=== PATIENT | male | born 1960 | race African-American/Black ===

== ENCOUNTER 2017-09-23 01:02 | Emergency (ER) | payer MEDICAID ==
[~2017-09-23] VITALS: Ht 182.9 cm; Wt 68.0 kg
[2017-09-23 01:10] VITALS: BP 133/68
[2017-09-23 02:10] LABS: Basophils # (auto) 0.1 uL; Monocytes # (auto) 1.3 uL; Nucleated Red Blood Cells % 0.1 %
[2017-09-23 02:12] LABS: Basophils % (auto) 0.4 % (0.0-2.0); Eosinophils # (auto) 0.1 uL; Eosinophils % (auto) 0.6 % (0.0-7.0); Hematocrit 51.8 % (41.0-53.0); Hemoglobin 16.7 g/dL (13.5-17.5); Lymphocytes # (auto) 1.8 uL; Lymphocytes % (auto) 15.9 % (10.0-50.0); Mean Corpuscular Hemoglobin 26.3 pg (28.0-32.0); Mean Corpuscular Hgb Conc. 32.3 g/dL (32.0-36.0); Mean Corpuscular Volume 81.6 fL (80.0-100.0); Monocytes % (auto) 11.1 % (0.0-12.0); Neutrophils # (auto) 8.1 uL; Platelet Count (auto) 249 10^3/uL (140-450); Red Cell Distribution Width 16.3 % (11.8-14.3); White Blood Cell 11.3 10^3/uL (4.4-10.8)
[2017-09-23 02:26] LABS: INR 1.15 (0.9-1.15); Partial Thromboplastin Time 30.1 sec (22.64-33.71); Prothrombin Time 12.6 sec (9.37-12.3)
[2017-09-23 02:27] LABS: Albumin 3.4 g/dL (3.4-5.0); BUN/Creatinine Ratio 18.8; Magnesium 2.1 mg/dL (1.6-2.6); Potassium 4.3 mmol/L (3.5-5.1)
[2017-09-23 02:32] LABS: Bilirubin, Total 1.1 mg/dL (0.2-1.0)
[2017-09-23 02:41] LABS: Temperature: 22.4 C (20.0-25.0)
== END 2017-09-23 02:40 | disposition left against medical advice (07) ==
LOC: EDBD 01:02 → ER 01:09
DX: R06.02 Shortness of breath (principal); R42 Dizziness and giddiness; R51 Headache; I10 Essential (primary) hypertension; Z53.29 Procedure and treatment not carried out because of patient's decision for other reasons
CPT/HCPCS: 36415; 71010; 72125; 80053; 83735; 83880; 84484; 85025; 85610; 85730; 93005; 94761

== ENCOUNTER 2017-10-02 10:13 | Emergency (ER) | payer MEDICAID ==
[~2017-10-02] VITALS: Ht 182.9 cm; Wt 68.0 kg
[~2017-10-02 10:13] MED LIST: ASPI81CH43 PO; FURO40TA4 PO; LISI10TA6 PO; METO-158 PO; PANT40T PO; SOTA80TA PO; SUCR1SUS10 PO; TAMS0.4C36 PO
[2017-10-02 10:40] LABS: Basophils # (auto) 0.1 uL; Eosinophils # (auto) 0.1 uL; Eosinophils % (auto) 0.5 % (0.0-7.0); Mean Corpuscular Hgb Conc. 32.5 g/dL (32.0-36.0); Nucleated Red Blood Cells % 0.6 %
[2017-10-02 10:42] LABS: Basophils % (auto) 0.9 % (0.0-2.0); Hematocrit 48.1 % (41.0-53.0); Hemoglobin 15.6 g/dL (13.5-17.5); Lymphocytes # (auto) 2.2 uL; Lymphocytes % (auto) 20.9 % (10.0-50.0); Mean Corpuscular Hemoglobin 26.3 pg (28.0-32.0); Mean Corpuscular Volume 81.1 fL (80.0-100.0); Mean Platelet Volume 7.7 fL (6.9-10.8); Monocytes # (auto) 1.6 uL; Monocytes % (auto) 15.1 % (0.0-12.0); Neutrophils # (auto) 6.5 uL; Neutrophils % (auto) 62.6 % (37.0-80.0); Platelet Count (auto) 266 10^3/uL (140-450); Red Cell Distribution Width 15.6 % (11.8-14.3); White Blood Cell 10.4 10^3/uL (4.4-10.8)
[2017-10-02 10:58] LABS: Albumin 2.8 g/dL (3.4-5.0); BUN/Creatinine Ratio 24.4; Calcium 8.5 mg/dL (8.5-10.1); Potassium 3.9 mmol/L (3.5-5.1)
[2017-10-02 11:00] LABS: Bilirubin, Total 0.5 mg/dL (0.2-1.0); Total Protein 6.3 g/dL (6.4-8.2)
[2017-10-02 11:22] LABS: INR 1.25 (0.9-1.15); Prothrombin Time 13.7 sec (9.37-12.3)
[2017-10-02 12:27] VITALS: BP 135/45
== END 2017-10-02 14:55 | disposition swing bed (61) ==
LOC: ER 10:13 → EDBD 10:13 → ER 14:55
DX: R07.89 Other chest pain (principal); R79.89 Other specified abnormal findings of blood chemistry; R74.8 Abnormal levels of other serum enzymes; I35.8 Other nonrheumatic aortic valve disorders; F17.210 Nicotine dependence, cigarettes, uncomplicated; I50.9 Heart failure, unspecified; I11.0 Hypertensive heart disease with heart failure; Z79.82 Long term (current) use of aspirin; Z88.0 Allergy status to penicillin
CPT/HCPCS: 36415; 71010; 80053; 83735; 84484; 85025; 85610; 85730; 93005; 99291

== ENCOUNTER 2017-10-11 03:47 | Emergency (ER) | payer MEDICAID ==
[~2017-10-11] VITALS: Ht 180.3 cm; Wt 90.7 kg
[~2017-10-11 03:47] MED LIST changes: -SOTA80TA PO; +SOTA80TA20 PO
[2017-10-11 05:57] LABS: Basophils # (auto) 0.1 uL; Basophils % (auto) 0.8 % (0.0-2.0); Eosinophils # (auto) 0.1 uL; Hemoglobin 14.9 g/dL (13.5-17.5); White Blood Cell 9.1 10^3/uL (4.4-10.8)
[2017-10-11 05:59] LABS: Eosinophils % (auto) 1.4 % (0.0-7.0); Hematocrit 46.5 % (41.0-53.0); Lymphocytes # (auto) 2.4 uL; Lymphocytes % (auto) 26.1 % (10.0-50.0); Mean Corpuscular Hemoglobin 26.2 pg (28.0-32.0); Mean Corpuscular Hgb Conc. 32.1 g/dL (32.0-36.0); Mean Corpuscular Volume 81.7 fL (80.0-100.0); Monocytes # (auto) 1.4 uL; Neutrophils # (auto) 5.2 uL; Neutrophils % (auto) 56.7 % (37.0-80.0); Nucleated Red Blood Cells % 0.4 %; Platelet Count (auto) 348 10^3/uL (140-450); Red Blood Cells 5.69 10^6/uL (4.5-5.90); Red Cell Distribution Width 16.2 % (11.8-14.3)
[2017-10-11 06:24] LABS: Potassium 3.5 mmol/L (3.5-5.1)
[2017-10-11 06:29] LABS: Albumin 3.1 g/dL (3.4-5.0); BUN/Creatinine Ratio 27.1; Calcium 8.7 mg/dL (8.5-10.1); Magnesium 2.5 mg/dL (1.6-2.6)
[2017-10-11 06:34] LABS: Bilirubin, Total 0.3 mg/dL (0.2-1.0); Total Protein 6.8 g/dL (6.4-8.2)
[2017-10-11 09:50] VITALS: BP 104/47
== END 2017-10-11 10:00 | disposition home or self-care (01) ==
LOC: ER 03:47 → EDBD 03:47 → ER 10:00
DX: R06.02 Shortness of breath (principal); E46 Unspecified protein-calorie malnutrition; I11.0 Hypertensive heart disease with heart failure; I50.9 Heart failure, unspecified; F17.210 Nicotine dependence, cigarettes, uncomplicated; I25.2 Old myocardial infarction; Z95.0 Presence of cardiac pacemaker
CPT/HCPCS: 36415; 71010; 80053; 83735; 84484; 85025; 93005

== ENCOUNTER 2017-10-28 19:54 | Inpatient (IN) | payer MEDICAID ==
[~2017-10-28] VITALS: Ht 188 cm; Wt 68.0 kg
[2017-10-28 21:03] LABS: INR 1.05 (0.9-1.15); Partial Thromboplastin Time 25.9 sec (22.64-33.71); Prothrombin Time 11.4 sec (9.37-12.3)
[2017-10-28 21:07] LABS: Basophils # (auto) 0.1 uL; Eosinophils # (auto) 0.2 uL; Lymphocytes % (auto) 26.2 % (10.0-50.0); Monocytes % (auto) 12.3 % (0.0-12.0); Platelet Count (auto) 246 10^3/uL (140-450)
[2017-10-28 21:12] LABS: BUN/Creatinine Ratio 17.9; Bilirubin, Total 0.4 mg/dL (0.2-1.0); Hemoglobin 13.3 g/dL (13.5-17.5); Lymphocytes # (auto) 2.1 uL; Magnesium 2.3 mg/dL (1.6-2.6); Mean Corpuscular Hemoglobin 26.4 pg (28.0-32.0); Mean Corpuscular Hgb Conc. 32.4 g/dL (32.0-36.0); Mean Corpuscular Volume 81.6 fL (80.0-100.0); Neutrophils # (auto) 4.6 uL; Neutrophils % (auto) 58.5 % (37.0-80.0); Nucleated Red Blood Cells % 0.3 %; Potassium 4.1 mmol/L (3.5-5.1); Red Blood Cells 5.02 10^6/uL (4.5-5.90); Red Cell Distribution Width 16.6 % (11.8-14.3); Total Protein 6.1 g/dL (6.4-8.2); White Blood Cell 7.8 10^3/uL (4.4-10.8)
[2017-10-29] MEDS ORDERED: ASPirin 81 mg TAB PO ONE (00:45)
[2017-10-29] MEDS ORDERED: HYDROcodone-ACET 10/325MG TAB PO ONE (01:30)
[2017-10-29 02:12] LABS: Urine WBC None Seen /hpf (0 - 3)
[2017-10-29] MEDS ORDERED: FUROSEMIDE 20 MG/2 ML VIAL IV ONE (02:30)
[2017-10-29 02:39] LABS: Urine Bacteria NONE SEEN /hpf (None Seen); Urine Blood Negative /uL (Negative); Urine Specific Gravity 1.021 (1.001-1.035)
[2017-10-29] MEDS ORDERED: LORazepam 0.5 MG TAB PO ONE (02:45)
[2017-10-29] MEDS ORDERED: SODIUM CHLORIDE 0.9% 1,000 ML IV SCH (03:14)
[2017-10-29] MEDS ORDERED: ENOXAPARIN SOD 100 MG/1 ML SYRINGE SC ONE (03:15)
[2017-10-29] MEDS ORDERED: NITROGLYCERIN 0.4 MG SL TAB SL PRN (03:15)
[2017-10-29] MEDS ORDERED: HYDROcodone-ACET 5/325MG TAB PO PRN (03:15)
[2017-10-29] MEDS ORDERED: MORPHINE SULFATE 10 MG/ML INJ 1ML SDV IV PRN ×2 (03:15)
[2017-10-29] MEDS ORDERED: ONDANSETRON HCL 4 MG/2 ML VIAL IV PRN (03:15)
[2017-10-29] MEDS ORDERED: TEMAZEPAM 15 MG CAP PO PRN (03:15)
[2017-10-29] MEDS ORDERED: ACETAMINOPHEN 325 MG TAB PO PRN (03:15)
[2017-10-29] MEDS ORDERED: FUROSEMIDE 40 MG TAB PO SCH (06:00)
[2017-10-29] MEDS ORDERED: LISINOPRIL 10 MG TAB PO SCH (10:00)
[2017-10-29] MEDS ORDERED: METOPROLOL TARTRATE 25 MG TAB PO SCH (10:00)
[2017-10-29] MEDS ORDERED: ASPirin 81 mg TAB PO SCH (10:00)
[2017-10-29] MEDS ORDERED: PANTOPRAZOLE 40 MG TAB PO SCH (10:00)
[2017-10-29] MEDS ORDERED: PANTOPRAZOLE 40 MG/10 ML VIAL IV SCH (10:00)
[2017-10-29 10:37] VITALS: BP 115/55
[2017-10-29] MEDS ORDERED: HYDR-4683 PO (10:50)
[2017-10-29] MEDS ORDERED: POTA10TA34 PO (10:50)
[2017-10-29] MEDS ORDERED: ENAL2.5T PO (10:50)
[2017-10-29] MEDS ORDERED: IBUP200C14 PO (10:50)
[2017-10-29 13:09] VITALS: BP 115/55
[2017-10-29] MEDS ORDERED: ENOXAPARIN SOD 40 MG/0.4 ML SYRINGE SC SCH (22:00)
== END 2017-10-29 18:04 | disposition short-term general hospital (02) | DRG 190 ==
LOC: EDBD 19:54 → ER 19:54 → TELE 19:55 → TELE-WESTW 10-29 10:21
PROVIDERS: ADMIT Nurse Practitioner; ATTEND Internal Medicine
DX: I21.4 Non-ST elevation (NSTEMI) myocardial infarction (principal); I11.0 Hypertensive heart disease with heart failure; I50.9 Heart failure, unspecified; N18.3 Chronic kidney disease, stage 3 (moderate); I35.1 Nonrheumatic aortic (valve) insufficiency; F17.210 Nicotine dependence, cigarettes, uncomplicated; N40.0 Benign prostatic hyperplasia without lower urinary tract symptoms; I77.819 Aortic ectasia, unspecified site; I25.10 Atherosclerotic heart disease of native coronary artery without angina pectoris; Z82.49 Family history of ischemic heart disease and other diseases of the circulatory system; Z86.73 Personal history of transient ischemic attack (TIA), and cerebral infarction without residual deficits; Z88.0 Allergy status to penicillin; Z79.899 Other long term (current) drug therapy; Z95.0 Presence of cardiac pacemaker
CPT/HCPCS: 36415; 71045; 80053; 81001; 83735; 83880; 84484; 85025; 85379; 85610; 85730; 93005; 96361; 96372; 96374; 96375; C9113

== ENCOUNTER 2018-01-17 04:40 | Emergency (ER) | payer MEDICAID ==
[~2018-01-17] VITALS: Ht 172.7 cm; Wt 72.6 kg
[~2018-01-17 04:40] MED LIST changes: +ENAL2.5T PO; +HYDR-4683 PO; +POTA10TA34 PO; -SOTA80TA20 PO
[2018-01-17 04:50] VITALS: BP 138/104
== END 2018-01-17 06:12 | disposition left against medical advice (07) ==
LOC: EDBD 04:40 → ER 04:45
DX: R10.9 Unspecified abdominal pain (principal); Z53.21 Procedure and treatment not carried out due to patient leaving prior to being seen by health care provider
CPT/HCPCS: 93005

== ENCOUNTER 2018-03-20 06:07 | Inpatient (IN) | payer MEDICAID ==
[~2018-03-20] VITALS: Ht 182.9 cm; Wt 71.4 kg
[2018-03-20] MEDS ORDERED: MORPHINE SULFATE 8mg/ml INJ SDV IV ONE (06:30)
[2018-03-20] MEDS ORDERED: ONDANSETRON HCL 4 MG/2 ML VIAL IV ONE (06:30)
[2018-03-20 06:52] LABS: Basophils # (auto) 0 uL; Mean Corpuscular Hemoglobin 22.8 pg (28.0-32.0); White Blood Cell 5.9 10^3/uL (4.4-10.8)
[2018-03-20 06:54] LABS: Eosinophils # (auto) 0.3 uL; Eosinophils % (auto) 5.7 % (0.0-7.0); Hematocrit 38.9 % (41.0-53.0); Hemoglobin 11.9 g/dL (13.5-17.5); Lymphocytes # (auto) 1.2 uL; Lymphocytes % (auto) 20.8 % (10.0-50.0); Mean Corpuscular Hgb Conc. 30.7 g/dL (32.0-36.0); Mean Corpuscular Volume 74.4 fL (80.0-100.0); Monocytes # (auto) 0.9 uL; Monocytes % (auto) 15.1 % (0.0-12.0); Neutrophils # (auto) 3.4 uL; Neutrophils % (auto) 58.4 % (37.0-80.0); Platelet Count (auto) 269 10^3/uL (140-450); Red Blood Cells 5.23 10^6/uL (4.5-5.90)
[2018-03-20] MEDS ORDERED: CARV3.1240 PO (06:59)
[2018-03-20] MEDS ORDERED: OME20T PO (06:59)
[2018-03-20 07:08] LABS: Red Cell Distribution Width 20.5 % (11.8-14.3)
[2018-03-20 07:14] LABS: INR 1.29 (0.9-1.15); Partial Thromboplastin Time 30.6 sec (23.78-33.04); Prothrombin Time 13.6 sec (9.27-12.13)
[2018-03-20 07:28] LABS: Albumin 3.2 g/dL (3.4-5.0); BUN/Creatinine Ratio 21.5; Bilirubin, Total 0.5 mg/dL (0.2-1.0); Calcium 8.1 mg/dL (8.5-10.1); Magnesium 2.2 mg/dL (1.6-2.6); Potassium 4.1 mmol/L (3.5-5.1); Total Protein 6.3 g/dL (6.4-8.2)
[2018-03-20] MEDS ORDERED: ACETAMINOPHEN 500 MG TAB PO PRN (08:00)
[2018-03-20] MEDS ORDERED: ONDANSETRON HCL 4 MG/2 ML VIAL IV PRN (08:00)
[2018-03-20] MEDS ORDERED: MORPHINE SULFATE 8mg/ml INJ SDV IV PRN (08:00)
[2018-03-20] MEDS ORDERED: NITROGLYCERIN 0.4 MG SL TAB SL PRN (08:00)
[2018-03-20] MEDS ORDERED: FUROSEMIDE 40 MG/4 ML VIAL IV ONE ×2 (08:15)
[2018-03-20] MEDS: FUROSEMIDE 40 MG/4 ML VIAL IV SCH ×2 (08:45→10:00)
[2018-03-20] MEDS: ASPirin-EC 81 mg tab PO SCH ×2 (08:49→10:04)
[2018-03-20 09:30] VITALS: BP 125/66
[2018-03-20 09:41] VITALS: BP 126/66
[2018-03-20] MEDS: LISINOPRIL 10 MG TAB PO SCH (09:58)
[2018-03-20] MEDS: HYDROcodone-ACET 5/325MG TAB PO PRN ×3 (09:59→20:16)
[2018-03-20] MEDS: CARVEDILOL 3.125 MG TAB PO SCH ×2 (10:00→22:21)
[2018-03-20 12:00] VITALS: BP 130/96
[2018-03-20 16:00] VITALS: BP 123/84
[2018-03-20] MEDS ORDERED: WARFARIN SODIUM 1 MG TAB PO ONE (17:00)
[2018-03-20] MEDS ORDERED: TAMSULOSIN HYDROCHLORIDE 0.4 MG CAP PO SCH (18:00)
[2018-03-20 20:00] VITALS: BP 130/96
[2018-03-20 22:00] VITALS: BP 116/67
[2018-03-20] MEDS ORDERED: TEMAZEPAM 15 MG CAP PO PRN (22:00)
[2018-03-21] MEDS: HYDROcodone-ACET 5/325MG TAB PO PRN ×3 (01:50→12:38)
[2018-03-21 05:00] VITALS: BP 119/76
[2018-03-21 06:36] LABS: Basophils # (auto) 0 uL; Eosinophils # (auto) 0.1 uL
[2018-03-21 06:38] LABS: Basophils % (auto) 0.9 % (0.0-2.0); Eosinophils % (auto) 1.8 % (0.0-7.0); Hematocrit 41.7 % (41.0-53.0); Hemoglobin 13.1 g/dL (13.5-17.5); Lymphocytes # (auto) 1.7 uL; Lymphocytes % (auto) 29.9 % (10.0-50.0); Mean Corpuscular Hemoglobin 23.3 pg (28.0-32.0); Mean Corpuscular Hgb Conc. 31.3 g/dL (32.0-36.0); Mean Corpuscular Volume 74.3 fL (80.0-100.0); Monocytes # (auto) 0.8 uL; Monocytes % (auto) 14.2 % (0.0-12.0); Neutrophils # (auto) 3.1 uL; Neutrophils % (auto) 53.2 % (37.0-80.0); Nucleated Red Blood Cells % 0.1 %; Platelet Count (auto) 269 10^3/uL (140-450); Red Blood Cells 5.61 10^6/uL (4.5-5.90); White Blood Cell 5.8 10^3/uL (4.4-10.8)
[2018-03-21 06:39] LABS: Red Cell Distribution Width 20.3 % (11.8-14.3)
[2018-03-21 06:42] LABS: INR 1.33 (0.9-1.15)
[2018-03-21 06:49] LABS: BUN/Creatinine Ratio 14.5; Calcium 8.4 mg/dL (8.5-10.1); Potassium 3.7 mmol/L (3.5-5.1)
[2018-03-21 08:00] VITALS: BP 121/79
[2018-03-21] MEDS: CARVEDILOL 3.125 MG TAB PO SCH (09:40)
[2018-03-21] MEDS: FUROSEMIDE 40 MG/4 ML VIAL IV SCH (09:42)
[2018-03-21] MEDS: LISINOPRIL 10 MG TAB PO SCH (09:43)
[2018-03-21] MEDS: ASPirin-EC 81 mg tab PO SCH (09:44)
[2018-03-21 12:37] LABS: BUN/Creatinine Ratio 16.4; Calcium 8.5 mg/dL (8.5-10.1)
[2018-03-21 12:47] VITALS: BP 137/91
[2018-03-21 16:46] VITALS: BP 148/87
[2018-03-21] MEDS ORDERED: WARFARIN SODIUM 2 MG TAB PO ONE (17:00)
[2018-03-22] MEDS ORDERED: FUROSEMIDE 20 MG TAB PO SCH (10:00)
== END 2018-03-21 17:10 | disposition left against medical advice (07) | DRG 194 ==
LOC: ER 06:08 → TELE 06:09 → TELE-WESTW 09:21
PROVIDERS: ADMIT Nurse Practitioner Family; ATTEND Internal Medicine
DX: I13.0 Hypertensive heart and chronic kidney disease with heart failure and stage 1 through stage 4 chronic kidney disease, or unspecified chronic kidney disease (principal); N17.9 Acute kidney failure, unspecified; E87.0 Hyperosmolality and hypernatremia; E44.1 Mild protein-calorie malnutrition; I50.43 Acute on chronic combined systolic (congestive) and diastolic (congestive) heart failure; I42.0 Dilated cardiomyopathy; D64.9 Anemia, unspecified; E78.5 Hyperlipidemia, unspecified; F17.210 Nicotine dependence, cigarettes, uncomplicated; I35.1 Nonrheumatic aortic (valve) insufficiency; K21.9 Gastro-esophageal reflux disease without esophagitis; N18.9 Chronic kidney disease, unspecified; N40.0 Benign prostatic hyperplasia without lower urinary tract symptoms; Z79.899 Other long term (current) drug therapy; Z82.49 Family history of ischemic heart disease and other diseases of the circulatory system; Z83.3 Family history of diabetes mellitus; Z86.73 Personal history of transient ischemic attack (TIA), and cerebral infarction without residual deficits; Z95.0 Presence of cardiac pacemaker; Z95.1 Presence of aortocoronary bypass graft; Z95.2 Presence of prosthetic heart valve; Z79.82 Long term (current) use of aspirin; I25.2 Old myocardial infarction; Z88.0 Allergy status to penicillin; Z68.21 Body mass index [BMI] 21.0-21.9, adult
CPT/HCPCS: 36415; 71045; 80048; 80053; 83735; 83880; 84484; 85025; 85610; 85730; 93005; 93306; 94761; 96374; 96375; 99291; J2405

== ENCOUNTER 2018-06-29 | Inpatient (IN) | payer MEDICAID ==
[~2018-06-29] VITALS: Ht 182.9 cm; Wt 72.8 kg
[~2018-06-29] MED LIST changes: +CARV3.1240 PO; -FURO40TA4 PO; +OME20T PO; -POTA10TA34 PO; +POTA1TAB61 PO
[2018-06-29 01:26] LABS: INR 1.8 (0.9-1.15); Partial Thromboplastin Time 32.3 sec (23.78-33.04); Prothrombin Time 18.6 sec (9.27-12.13)
[2018-06-29 01:30] LABS: Albumin 3.2 g/dL (3.4-5.0); Basophils # (auto) 0.1 uL; Basophils % (auto) 0.7 % (0.0-2.0); Calcium 7.8 mg/dL (8.5-10.1); Eosinophils # (auto) 0.1 uL; Eosinophils % (auto) 1.1 % (0.0-7.0); Hemoglobin 13.1 g/dL (13.5-17.5); Lymphocytes # (auto) 1.4 uL; Lymphocytes % (auto) 17.7 % (10.0-50.0); Magnesium 2.1 mg/dL (1.6-2.6); Mean Corpuscular Hemoglobin 23.5 pg (28.0-32.0); Mean Corpuscular Hgb Conc. 31.2 g/dL (32.0-36.0); Mean Corpuscular Volume 75.4 fL (80.0-100.0); Monocytes # (auto) 0.9 uL; Monocytes % (auto) 11.7 % (0.0-12.0); Neutrophils # (auto) 5.4 uL; Neutrophils % (auto) 68.8 % (37.0-80.0); Nucleated Red Blood Cells % 0.2 %; Platelet Count (auto) 309 10^3/uL (140-450); Potassium 3.5 mmol/L (3.5-5.1); Red Blood Cells 5.58 10^6/uL (4.5-5.90); White Blood Cell 7.9 10^3/uL (4.4-10.8)
[2018-06-29 01:31] LABS: Red Cell Distribution Width 20.7 % (11.8-14.3)
[2018-06-29 01:36] LABS: Bilirubin, Total 0.3 mg/dL (0.2-1.0); Total Protein 6.7 g/dL (6.4-8.2)
[2018-06-29] MEDS ORDERED: HYDROcodone-ACET 10/325MG TAB PO ONE ×2 (01:45→09:15)
[2018-06-29 08:22] LABS: Urine Bacteria NONE SEEN /hpf (None Seen); Urine Blood Negative /uL (Negative); Urine Specific Gravity 1.007 (1.001-1.035); Urine WBC 1 /hpf (0 - 3)
[2018-06-29] MEDS ORDERED: PANTOPRAZOLE 40 MG/10 ML VIAL IV ONE (09:15)
[2018-06-29] MEDS ORDERED: LORazepam 2MG/ML-1ML VIAL IV PRN (10:15)
[2018-06-29] MEDS ORDERED: LORazepam 0.5 MG TAB PO PRN (10:15)
[2018-06-29] MEDS ORDERED: ALUM & MAG HYDROX-SIMETH LIQ(MAALOX) 30 ML PO ONE (10:15)
[2018-06-29] MEDS ORDERED: HCTZ 25 MG TAB PO ONE (10:15)
[2018-06-29] MEDS ORDERED: NITROGLYCERIN 0.4 MG SL TAB SL PRN ×2 (10:15)
[2018-06-29] MEDS ORDERED: MORPHINE SULF INJ 2 MG/ML SYRINGE 1ML IV PRN (10:15)
[2018-06-29] MEDS ORDERED: MORPHINE SULFATE 4 MG/ML SYR/VIAL IV PRN (10:15)
[2018-06-29] MEDS ORDERED: ACETAMINOPHEN 325 MG TAB PO PRN (10:15)
[2018-06-29] MEDS ORDERED: ZOLPIDEM TARTRATE 5 MG TAB PO PRN (10:15)
[2018-06-29] MEDS ORDERED: ONDANSETRON HCL 4 MG/2 ML VIAL IV PRN (10:15)
[2018-06-29] MEDS ORDERED: AMIO200T33 PO (11:02)
[2018-06-29] MEDS ORDERED: FERR-20 PO (11:02)
[2018-06-29] MEDS ORDERED: HCTZ25T GT (11:02)
[2018-06-29] MEDS ORDERED: WARF2TAB55 PO (11:02)
[2018-06-29] MEDS ORDERED: HYDR-531 PO (11:02)
[2018-06-29] MEDS: CARVEDILOL 3.125 MG TAB PO SCH ×2 (11:04→22:00)
[2018-06-29] MEDS: FERROUS SULFATE 325 MG TAB PO SCH ×2 (11:04→18:00)
[2018-06-29] MEDS: AMIODARONE HCL 200 MG TAB PO SCH ×2 (11:04→22:16)
[2018-06-29] MEDS: LISINOPRIL 10 MG TAB PO SCH (11:07)
[2018-06-29] MEDS: SODIUM CHLOR 0.9% PF (SALINE LOCK) 10ML VIAL/SYR IV SCH ×2 (14:10→22:04)
[2018-06-29] MEDS: HYDROcodone-ACET 10/325MG TAB PO PRN ×2 (16:23→22:28)
[2018-06-29] MEDS ORDERED: WARFARIN SODIUM 2.5 MG TAB PO ONE (17:00)
[2018-06-29] MEDS ORDERED: TAMSULOSIN HYDROCHLORIDE 0.4 MG CAP PO SCH (18:00)
[2018-06-29 21:49] VITALS: BP 105/69
[2018-06-29] MEDS ORDERED: ATORVASTATIN 20 MG TAB PO SCH (22:00)
[2018-06-30] MEDS: HYDROcodone-ACET 10/325MG TAB PO PRN ×2 (04:35→10:25)
[2018-06-30 04:47] VITALS: BP 116/68
[2018-06-30] MEDS: SODIUM CHLOR 0.9% PF (SALINE LOCK) 10ML VIAL/SYR IV SCH (06:00)
[2018-06-30 06:57] LABS: Basophils # (auto) 0 uL; Eosinophils # (auto) 0.1 uL; Eosinophils % (auto) 1.8 % (0.0-7.0); Mean Corpuscular Hemoglobin 23.8 pg (28.0-32.0)
[2018-06-30 07:00] LABS: Basophils % (auto) 0.6 % (0.0-2.0); Hematocrit 43.3 % (41.0-53.0); Hemoglobin 13.8 g/dL (13.5-17.5); Lymphocytes # (auto) 1.6 uL; Lymphocytes % (auto) 24.1 % (10.0-50.0); Mean Corpuscular Hgb Conc. 31.8 g/dL (32.0-36.0); Mean Corpuscular Volume 74.7 fL (80.0-100.0); Monocytes % (auto) 15.3 % (0.0-12.0); Neutrophils # (auto) 3.9 uL; Neutrophils % (auto) 58.2 % (37.0-80.0); Platelet Count (auto) 288 10^3/uL (140-450); Red Blood Cells 5.79 10^6/uL (4.5-5.90); White Blood Cell 6.7 10^3/uL (4.4-10.8)
[2018-06-30 07:05] LABS: INR 1.4 (0.9-1.15); Partial Thromboplastin Time 30.3 sec (23.78-33.04); Prothrombin Time 14.7 sec (9.27-12.13)
[2018-06-30 07:07] LABS: Red Cell Distribution Width 20.7 % (11.8-14.3)
[2018-06-30 07:13] LABS: Albumin 3.1 g/dL (3.4-5.0); Bilirubin, Total 0.6 mg/dL (0.2-1.0); Calcium 8.4 mg/dL (8.5-10.1); Magnesium 2.1 mg/dL (1.6-2.6); Potassium 3.3 mmol/L (3.5-5.1); Total Protein 6.5 g/dL (6.4-8.2)
[2018-06-30] MEDS: FERROUS SULFATE 325 MG TAB PO SCH ×2 (07:57→11:57)
[2018-06-30 09:23] VITALS: BP 112/72
[2018-06-30] MEDS: CARVEDILOL 3.125 MG TAB PO SCH (10:00)
[2018-06-30] MEDS ORDERED: PANTOPRAZOLE 40 MG TAB PO SCH (10:00)
[2018-06-30] MEDS ORDERED: DOCUSATE SOD 100 MG CAP PO SCH (10:00)
[2018-06-30] MEDS ORDERED: HCTZ 25 MG TAB PO SCH (10:00)
[2018-06-30] MEDS: AMIODARONE HCL 200 MG TAB PO SCH (10:22)
[2018-06-30] MEDS: LISINOPRIL 10 MG TAB PO SCH (10:24)
[2018-06-30 12:30] VITALS: BP 120/75
[2018-06-30] MEDS ORDERED: POTASSIUM CHL 20 Meq TABLET PO ONE (14:15)
[2018-06-30 16:51] VITALS: BP 120/75
[2018-06-30] MEDS ORDERED: WARFARIN SODIUM 2 MG TAB PO ONE (17:00)
== END 2018-06-30 17:20 | disposition home health service (06) | DRG 198 ==
LOC: EDBD → ER 00:08 → TELE 00:09 → TELE-WESTW 16:48
PROVIDERS: ADMIT Internal Medicine; ATTEND Internal Medicine
PROC: 4B02XSZ Measurement of Cardiac Pacemaker, External Approach (ICD-10-PCS; principal; 2018-06-29)
DX: I25.119 Atherosclerotic heart disease of native coronary artery with unspecified angina pectoris (principal); I42.9 Cardiomyopathy, unspecified; E44.1 Mild protein-calorie malnutrition; I13.0 Hypertensive heart and chronic kidney disease with heart failure and stage 1 through stage 4 chronic kidney disease, or unspecified chronic kidney disease; I50.9 Heart failure, unspecified; I48.92 Unspecified atrial flutter; I48.91 Unspecified atrial fibrillation; G40.909 Epilepsy, unspecified, not intractable, without status epilepticus; N28.1 Cyst of kidney, acquired; N18.3 Chronic kidney disease, stage 3 (moderate); E78.5 Hyperlipidemia, unspecified; E61.1 Iron deficiency; F17.210 Nicotine dependence, cigarettes, uncomplicated; K57.30 Diverticulosis of large intestine without perforation or abscess without bleeding; J98.11 Atelectasis; K21.9 Gastro-esophageal reflux disease without esophagitis; R55 Syncope and collapse; N40.0 Benign prostatic hyperplasia without lower urinary tract symptoms; D63.8 Anemia in other chronic diseases classified elsewhere; Z82.49 Family history of ischemic heart disease and other diseases of the circulatory system; Z86.73 Personal history of transient ischemic attack (TIA), and cerebral infarction without residual deficits; I25.2 Old myocardial infarction; Z95.2 Presence of prosthetic heart valve; Z68.21 Body mass index [BMI] 21.0-21.9, adult; Z88.0 Allergy status to penicillin; Z91.013 Allergy to seafood; Z95.810 Presence of automatic (implantable) cardiac defibrillator
CPT/HCPCS: 36415; 71045; 74176; 80053; 80061; 81001; 82150; 83540; 83690; 83735; 83880; 84443; 84484; 85025; 85610; 85730; 93005; 96374; C9113

== ENCOUNTER 2018-07-01 01:52 | Emergency (ER) | payer MEDICAID ==
[~2018-07-01] VITALS: Ht 182.9 cm; Wt 68.0 kg
[~2018-07-01 01:52] MED LIST changes: +AMIO200T33 PO; -ASPI81CH43 PO; -ENAL2.5T PO; +FERR-20 PO; +HCTZ25T GT; -HYDR-4683 PO; +HYDR-531 PO; -METO-158 PO; -PANT40T PO; -POTA1TAB61 PO; +WARF2TAB55 PO
[2018-07-01 03:02] LABS: Eosinophils # (auto) 0 uL; Hemoglobin 13.9 g/dL (13.5-17.5); Lymphocytes # (auto) 1.2 uL; Monocytes # (auto) 0.8 uL
[2018-07-01 03:04] LABS: Basophils # (auto) 0 uL; Basophils % (auto) 0.4 % (0.0-2.0); Eosinophils % (auto) 0.2 % (0.0-7.0); Hematocrit 44.9 % (41.0-53.0); Lymphocytes % (auto) 14.7 % (10.0-50.0); Mean Corpuscular Hemoglobin 23.4 pg (28.0-32.0); Mean Corpuscular Volume 75.4 fL (80.0-100.0); Monocytes % (auto) 9.9 % (0.0-12.0); Neutrophils % (auto) 74.8 % (37.0-80.0); Platelet Count (auto) 321 10^3/uL (140-450); Red Blood Cells 5.95 10^6/uL (4.5-5.90)
[2018-07-01 03:06] LABS: Red Cell Distribution Width 20.9 % (11.8-14.3)
[2018-07-01 03:25] LABS: Albumin 3.5 g/dL (3.4-5.0); BUN/Creatinine Ratio 12.9; Bilirubin, Total 0.5 mg/dL (0.2-1.0); Calcium 8.5 mg/dL (8.5-10.1); Potassium 4.2 mmol/L (3.5-5.1); Total Protein 7.4 g/dL (6.4-8.2)
[2018-07-01 08:00] VITALS: BP 125/65
== END 2018-07-01 08:09 | disposition home or self-care (01) ==
LOC: ER 01:52 → EDBD 01:52 → ER 08:09
DX: R07.89 Other chest pain (principal); I48.91 Unspecified atrial fibrillation; I11.0 Hypertensive heart disease with heart failure; I50.9 Heart failure, unspecified; E78.5 Hyperlipidemia, unspecified; I25.2 Old myocardial infarction; F17.210 Nicotine dependence, cigarettes, uncomplicated; Z95.810 Presence of automatic (implantable) cardiac defibrillator; Z86.73 Personal history of transient ischemic attack (TIA), and cerebral infarction without residual deficits; Z88.0 Allergy status to penicillin; Z91.013 Allergy to seafood; Z79.01 Long term (current) use of anticoagulants; Z79.899 Other long term (current) drug therapy
CPT/HCPCS: 36415; 80053; 84484; 85025; 93005; 94761

== ENCOUNTER 2018-08-21 18:23 | Emergency (ER) | payer MEDICAID ==
[~2018-08-21] VITALS: Ht 182.9 cm; Wt 68.0 kg
[2018-08-21 20:26] VITALS: BP 100/60
[2018-08-21 20:59] LABS: Urine Bacteria NONE SEEN /hpf (None Seen); Urine Blood 2+ /uL (Negative); Urine Specific Gravity 1.009 (1.001-1.035); Urine WBC <1 /hpf (0 - 3)
== END 2018-08-21 21:36 | disposition home or self-care (01) ==
LOC: EDUNIT# 18:23 → EDBD 18:23 → ER 18:32
DX: N39.0 Urinary tract infection, site not specified (principal); I48.91 Unspecified atrial fibrillation; I11.0 Hypertensive heart disease with heart failure; I50.9 Heart failure, unspecified; E78.5 Hyperlipidemia, unspecified; Z86.73 Personal history of transient ischemic attack (TIA), and cerebral infarction without residual deficits; Z88.0 Allergy status to penicillin; Z91.013 Allergy to seafood; Z79.899 Other long term (current) drug therapy
CPT/HCPCS: 51702; 81001